=== PATIENT | female | born 1950 | race Two or more races ===

== ENCOUNTER 2019-04-28 18:30 | Emergency (ER) | payer SELFPAY ==
[~2019-04-28] VITALS: Ht 154.9 cm; Wt 60.3 kg
[2019-04-28] MEDS ORDERED: HYDROCODONE/APAP 5/325MG 1 EACH TABLET PO ONE (19:30)
[2019-04-28] MEDS ORDERED: HYDROCODONE/APAP 5/325MG 1 EACH TABLET ONE (19:33)
[2019-04-28] MEDS ORDERED: ACETAMINOPHEN 325 MG TABLET ONE (19:48)
[2019-04-28] MEDS ORDERED: ACETAMINOPHEN 325 MG TABLET PO ONE (20:00)
--- NOTE | 2019-04-28 20:05 | NUR ---
pt to ct via [facility]
--- NOTE | 2019-04-28 20:18 | NUR ---
pt return from ct
--- NOTE | 2019-04-28 20:55 | NUR ---
pt ok to be discharged per mihaela marquez. Patient discharged to home in stable condition. Written and verbal after care instructions given. Patient verbalizes understanding of instruction.Patient is awake and alert to self, day, and place. pt ambulatory with a steady gait
[2019-04-28 20:57] VITALS: BP 132/75
== END 2019-04-28 20:58 | disposition home or self-care (01) ==
LOC: ER 18:33
DX: S16.1XXA Strain of muscle, fascia and tendon at neck level, initial encounter (principal); S39.012A Strain of muscle, fascia and tendon of lower back, initial encounter; S46.812A Strain of other muscles, fascia and tendons at shoulder and upper arm level, left arm, initial encounter; M51.36 Other intervertebral disc degeneration, lumbar region; M79.642 Pain in left hand; Z88.6 Allergy status to analgesic agent; Z88.2 Allergy status to sulfonamides; Z60.2 Problems related to living alone; V49.59XA Passenger injured in collision with other motor vehicles in traffic accident, initial encounter; Y93.89 Activity, other specified; Y92.488 Other paved roadways as the place of occurrence of the external cause; Y99.8 Other external cause status
CPT/HCPCS: 72125; 72131; 73030; 73130; 99285; L0172